=== PATIENT | male | born 1950 | race Two or more races ===

== ENCOUNTER 2016-09-28 06:51 | Emergency (ER) | payer BC, OTHER ==
[~2016-09-28] VITALS: Ht 165.1 cm; Wt 68.0 kg
--- NOTE | 2016-09-28 07:00 | NUR ---
BIB FROM HOME DUE TO WEAKNESS AND PAIN IN URINATION SINCE THIS AM.. PATIENT HAD PROSTATE BIOPSY YESTERDAY. SKIN IS WARM TO TOUCH AND NON DIAPHORETIC. NOTED WITH LOW GRADE FEVER. CONNECTED PATIENT TO TELE MONITOR AND NOTED TACHY. AWAITING FOR MD GARCIA
--- NOTE | 2016-09-28 07:08 | NUR ---
MD BELTRAN AT BEDSIDE
[2016-09-28] MEDS ORDERED: IV NS 0.9% 1,000 ML ONE (07:19)
[2016-09-28] MEDS ORDERED: MORPHINE SULFATE INJ 4 MG/ML DISP.SYRIN ONE (07:19)
[2016-09-28] MEDS ORDERED: IV SET PRIMARY PUMP SET 1 EA INFUS.SET MC ONE (07:19)
[2016-09-28] MEDS ORDERED: ONDANSETRON HCL/PF 4 MG/2 ML VIAL ONE (07:19)
--- NOTE | 2016-09-28 07:24 | NUR ---
URINE SAMPLE SENT TO LAB
--- NOTE | 2016-09-28 07:27 | NUR ---
IV ACCESSED TO [facility] 20. BLOOD SAMPLE SENT TO LAB
[2016-09-28 07:29] LABS: BASOPHILS % (AUTO) 0.2 % (0.0-2.0); EOSINOPHILS % (AUTO) 0.7 % (0.0-6.0); HEMATOCRIT 45 % (39-51); HEMOGLOBIN 15.2 g/dL (13.5-17.5); LYMPHOCYTES # (AUTO) 0.7 /CMM (0.8-4.8); LYMPHOCYTES % (AUTO) 10.8 % (20.0-44.0); MEAN CORPUSCULAR HEMOGLOBIN 31 PG (26.0-33.0); MEAN CORPUSCULAR HGB CONC 34 g/dl (31.0-36.0); MEAN CORPUSCULAR VOLUME 92 fL (80-96); MONOCYTES % (AUTO) 0.7 % (2.0-12.0); NEUTROPHILS # (AUTO) 5.5 /CMM (1.8-8.9); NEUTROPHILS % (AUTO) 87.6 % (43.0-81.0); PLATELET COUNT (AUTO) 194 /CMM (150-450); RDW COEFFICIENT OF VARIATION 13.5 (11.5-15.0); WHITE BLOOD COUNT (AUTO) 6.3 K/uL (4.3-11.0)
[2016-09-28] MEDS ORDERED: ONDANSETRON HCL/PF 4 MG/2 ML VIAL IVP ONE (07:30)
[2016-09-28] MEDS ORDERED: IV NS 0.9% 1,000 ML BAG IV ONE (07:30)
[2016-09-28] MEDS ORDERED: MORPHINE SULFATE INJ 2 MG/ML DISP.SYRIN IV ONE (07:30)
[2016-09-28 07:39] LABS: APPEARANCE,URINE SL CLOUDY (CLEAR); BILIRUBIN,URINE NEGATIVE (NEGATIVE); BLOOD, URINE 3+ Ery/uL (NEGATIVE); COLOR,URINE YELLOW (YELLOW); KETONES,URINE TRACE (NEGATIVE); LEUKOCYTE ESTERASE ,URINE TRACE (NEGATIVE); NITRITE, URINE NEGATIVE (NEGATIVE); PH,URINE 5.5 (5.0-8.0); PROTEIN,URINE 2+ mg/dl (NEGATIVE); UGLUCOSE NEGATIVE (NEGATIVE); UROBILINOGEN,URINE 0.2 EU/dL (0.2)
[2016-09-28 07:43] LABS: CALCIUM, SERUM 8.6 mg/dL (8.5-10.1); CREATININE 1.2 mg/dL (0.6-1.3); POTASSIUM 4.2 mmol/L (3.5-5.1)
[2016-09-28 07:50] LABS: ADD URINE CULTURE YES; BACTERIA,URINE Rare /HPF (None Seen); RBC,URINE 21-50 /HPF (0-2); SQUAMOUS EPITHELIAL CELL,UR None Seen /HPF (None Seen)
[2016-09-28 08:12] VITALS: BP 120/70
--- NOTE | 2016-09-28 08:13 | NUR ---
EKG TO BE TAKEN PRIOR DC
== END 2016-09-28 08:18 | disposition home or self-care (01) ==
LOC: ER 06:53
DX: N39.0 Urinary tract infection, site not specified (principal); N40.0 Benign prostatic hyperplasia without lower urinary tract symptoms
CPT/HCPCS: 36415; 80048-TC; 81000-TC; 85025-TC; 87086-TC; A4606; J2270; J2405; J7030; Z7610